=== PATIENT | male | born 1990 | race Caucasian/White ===

== ENCOUNTER 2017-05-25 16:57 | Emergency (ER) | payer OTHER ==
[~2017-05-25] VITALS: Ht 190.5 cm; Wt 120.0 kg
[2017-05-25 17:02] VITALS: Ht 190.5 cm; Wt 120.0 kg
[2017-05-25] MEDS ORDERED: AMOX500C2 PO (18:52)
[2017-05-25] MEDS ORDERED: IBUP-1542 PO (18:52)
[2017-05-25] MEDS ORDERED: PSEU120T11 PO (18:52)
[2017-05-25] MEDS ORDERED: LORA10CA PO (18:52)
--- NOTE | 2017-05-25 18:57 | ERD ---
ER Documentation Chief Complaint Date/Time DATE: 05/25/17 TIME: 18:55 Chief Complaint pt bib self with c/o ringing in the ear with some pain HPI 26 year old male comes in with bilateral inner ear pain with ringing in the ears for 2-3 days. Pain is worse in the left side, achy, nonradiating. No fever , nausea, vomiting. No cough, URI symptoms. Denies headache. ROS All systems reviewed and are negative except as per history of present illness. Medications Home Meds Active Scripts Ibuprofen* (Motrin*) 600 Mg Tab, 600 MG PO Q6, #30 TAB Prov:MARY BURRIS PA-C 05/25/17 Loratadine* (Claritin*) 10 Mg Capsule, 10 MG PO DAILY, #20 CAP Prov:MARY BURRIS PA-C 05/25/17 Pseudoephedrine Hcl (Sudafe 12-Hour) 120 Mg Tablet.er, 120 MG PO BID Y for CONGESTION, #6 TAB.SA Prov:MARY BURRIS PA-C 05/25/17 Amoxicillin* (Amoxicillin*) 500 Mg Cap, 500 MG PO TID for 10 Days, CAP Prov:MARY BURRIS PA-C 05/25/17 Allergies Allergies: Coded Allergies: No Known Allergy (Unverified , 05/25/17) PMhx/Soc Medical and Surgical Hx: pt denies Medical Hx History of Surgery: Yes (hand sx right ) Anesthesia Reaction: No Hx Neurological Disorder: No Hx Respiratory Disorders: No Hx Cardiac Disorders: No Hx Psychiatric Problems: No Hx Miscellaneous Medical Probl: No Hx Alcohol Use: No Hx Substance Use: No Hx Tobacco Use: No Smoking Status: Never smoker Physical Exam Vitals Vital Signs Date Time Temp Pulse Resp B/P Pulse Ox O2 Delivery O2 Flow Rate FiO2 05/25/17 17:02 98.7 83 18 141/87 98 Physical Exam General: Well-developed, well-nourished. The patient appears in no acute distress. HEENT: Head is normocephalic, atraumatic. No scleral icterus. Bilateral TMs are bulging, only left ear has erythema, no perforation, otorrhea or discharge, mastoids are nontender. Oropharynx is clear. Neck: Supple. Nontender. Lungs: Clear to auscultation. Normal air movement. Heart: Regular rate and rhythm. S1 and S2 are normal. No murmurs, gallops, or rubs. Abdomen: Nondistended. Extremities: No clubbing or cyanosis. Moving extremities x 4. No weakness. Neurologic: Alert and oriented 3. No focal deficits. Normal speech and gait. Skin: Normal turgor. No rash or lesions. Procedures/MDM 26-year-old male comes emergency department with left-sided otitis media, likely early right-sided otitis media. There are no signs of deep space infection, mastoiditis, tympanic membrane perforation, foreign body. Departure Diagnosis: Primary Impression: Left otitis media Condition: Good Patient Instructions: Otitis Media, Abx Tx (Adult) Additional Instructions: Call your primary care doctor TOMORROW for an appointment during the next 1-2 days.See the doctor sooner or return here if your condition worsens before your appointment time. MARY BURRIS PA-C May 25, 2017 18:57
== END 2017-05-25 19:04 | disposition home or self-care (01) ==
LOC: FTE 16:57
DX: H66.92 Otitis media, unspecified, left ear (principal)
CPT/HCPCS: 99283

== ENCOUNTER 2017-06-04 08:04 | Emergency (ER) | payer OTHER ==
[~2017-06-04] VITALS: Ht 190.5 cm; Wt 125.0 kg
[~2017-06-04 08:04] MED LIST: AMOX500C2 PO; IBUP-1542 PO; LORA10CA PO; PSEU120T11 PO
[2017-06-04 08:08] VITALS: Ht 190.5 cm; Wt 125.0 kg
--- NOTE | 2017-06-04 08:26 | ERD ---
ER Documentation Chief Complaint Date/Time DATE: 06/04/17 TIME: 08:23 Chief Complaint bilat ear pain HPI 26-year-old male who presents emergency department for bilateral ear pain for more than a week. Stated that he was here previously and was treated with amoxicillin and was told to come back if his symptoms persist. Denies headache, dizziness, blurred vision, neck pain, neck stiffness, shoulder pain, chest pain, back pain, abdominal pain, nausea, vomiting, and constipation , diarrhea, urinary symptoms, recent travel, fever, chills. No known drug allergies. No past medical history. Surgical history John left shoulder surgery, right finger injury. 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 Denies use of alcoholic beverages, use of illegal drugs. ROS All systems reviewed and are negative except as per history of present illness. Medications Home Meds Active Scripts Acetaminophen* (Tylophen*) 500 Mg Capsule, 1 CAP PO Q6H Y for PAIN AND OR ELEVATED TEMP, #20 CAP Prov:JAMESANKITINGRID F 06/04/17 Ibuprofen* (Motrin*) 800 Mg Tab, 800 MG PO Q8 Y for PAIN AND OR ELEVATED TEMP, # 30 TAB Prov:ANKIT RAMIREZAR F 06/04/17 Ciprofloxacin Hcl/Dexameth (Ciprodex Otic Suspension) 7.5 Ml Drops.susp, 4 DROP BOTH EARS BID for 7 Days, EA Prov:SHARMAINE RAMIREZ F 06/04/17 Amoxicillin/Potassium Clav (Amox-Clav 875-125 mg Tablet) 875-125 mg Tab, 1 TAB PO BID for 7 Days, #14 TAB Prov:JAMESANKITINGRID F 06/04/17 Ibuprofen* (Motrin*) 600 Mg Tab, 600 MG PO Q6, #30 TAB Prov:MARY BURRIS PA-C 05/25/17 Loratadine* (Claritin*) 10 Mg Capsule, 10 MG PO DAILY, #20 CAP Prov:MARY BURRIS PA-C 05/25/17 Pseudoephedrine Hcl (Sudafe 12-Hour) 120 Mg Tablet.er, 120 MG PO BID Y for CONGESTION, #6 TAB.SA Prov:MARY BURRIS PA-C 05/25/17 Amoxicillin* (Amoxicillin*) 500 Mg Cap, 500 MG PO TID for 10 Days, CAP Prov:MARY BURRIS PA-C 05/25/17 Allergies Allergies: Coded Allergies: No Known Allergy (Unverified , 06/04/17) PMhx/Soc History of Surgery: Yes (hand sx right ) Anesthesia Reaction: No Hx Neurological Disorder: No Hx Respiratory Disorders: No Hx Cardiac Disorders: No Hx Psychiatric Problems: No Hx Miscellaneous Medical Probl: No Hx Alcohol Use: No Hx Substance Use: No Hx Tobacco Use: No Physical Exam Vitals Vital Signs Date Time Temp Pulse Resp B/P Pulse Ox O2 Delivery O2 Flow Rate FiO2 06/04/17 08:08 98.5 91 18 131/70 98 Physical Exam Const: [] Head: Atraumatic Eyes: Normal Conjunctiva. PERRLA. Her ocular movement of his eyes is within normal limits. No pain in eye movement. ENT: Normal nose and Mouth. Bilateral TM is erythematous. External ear canal is erythematous bilaterally. No discharge. No bleeding. No signs of tympanic membrane rupture. No signs of effusion. No hearing loss. Neck: Full range of motion..~ No meningismus. Neck stiffness. No signs of meningeal irritation. Negative and Kernig sign. Negative on Brudzinski sign. Resp: Clear to auscultation bilaterally Cardio: Regular rate and rhythm, no murmurs Abd: Soft, non tender, non distended. Normal bowel sounds Skin: No petechiae or rashes Back: No midline or flank tenderness Ext: No cyanosis, or edema Neur: Awake and alert Psych: Normal Mood and Affect Procedures/MDM 26-year-old male who presents emergency department for bilateral ear pain for more than a week. Stated that he was here previously and was treated with amoxicillin and was told to come back if his symptoms persist. Denies headache, dizziness, blurred vision, neck pain, neck stiffness, shoulder pain, chest pain, back pain, abdominal pain, nausea, vomiting, and constipation , diarrhea, urinary symptoms, recent travel, fever, chills. No known drug allergies. No past medical history. Surgical history John left shoulder surgery, right finger injury. 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 Denies use of alcoholic beverages, use of illegal drugs. Physical exam: Bilateral TM is erythematous. External ear canal is erythematous bilaterally. No discharge. No bleeding. No signs of tympanic membrane rupture. No signs of effusion. No hearing loss. Neck stiffness. No signs of meningeal irritation. Disease process was explained to the patient. Patient verbalized understanding and agreed with the treatment, plan of care. Prescription: Augmentin. Ciprodex otic drops. Tylenol. Motrin. Follow-up with primary care physician the next 24-48 hours. PCP to refer patient to ENT if symptoms persist. Come back in the emergency department for any symptoms or any worsening of symptoms. All questions and concerns are answered. Patient verbalized understanding and agreed with the plan of care. Hemodynamically stable on discharge. Departure Diagnosis: Primary Impression: Otitis media Additional Impression: Otitis externa Condition: Stable Additional Instructions: Follow-up with primary care physician the next 24-48 hours. PCP to refer patient to ENT if symptoms persist. Come back in the emergency department for any symptoms or any worsening of symptoms. All questions and concerns are answered. Patient verbalized understanding and agreed with the plan of care. SHARMAINE RAMIREZ Jun 04, 2017 08:26
[2017-06-04] MEDS ORDERED: AMOX1TAB10 PO (08:28)
[2017-06-04] MEDS ORDERED: IBUP800T25 PO (08:29)
[2017-06-04] MEDS ORDERED: CIPR7.5D4 BOTH EARS (08:29)
[2017-06-04] MEDS ORDERED: ACET500C5 PO (08:30)
== END 2017-06-04 08:46 | disposition home or self-care (01) ==
LOC: FTE 08:04
DX: H66.93 Otitis media, unspecified, bilateral (principal); H60.93 Unspecified otitis externa, bilateral
CPT/HCPCS: 99283

== ENCOUNTER 2017-08-08 13:59 | Emergency (ER) | payer OTHER ==
[~2017-08-08] VITALS: Ht 190.5 cm; Wt 125.0 kg
[~2017-08-08 13:59] MED LIST changes: +ACET500C5 PO; +AMOX1TAB10 PO; +CIPR7.5D4 BOTH EARS; +IBUP800T25 PO
[2017-08-08 14:00] VITALS: Ht 190.5 cm; Wt 125.0 kg
[2017-08-08] MEDS ORDERED: PSEU120T51 PO (14:37)
[2017-08-08] MEDS ORDERED: AZIT250T94 PO (14:37)
--- NOTE | 2017-08-08 14:39 | ERD ---
ER Documentation Chief Complaint Chief Complaint rt ear pain HPI 27-year-old male complains of right ear pain for last day. He had sharp pain while coughing. 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 He denies any significant nasal congestion, fevers, bleeding or discharge. ROS All systems reviewed and are negative except as per history of present illness. Medications Home Meds Active Scripts Pseudoephedrine Hcl (Sudafed 12 Hour) 120 Mg Tablet.sa, 120 MG PO BID for 7 Days , #15 Prov:TONIO URIBE MD 08/08/17 Azithromycin* (Zithromax*) 250 Mg Tablet, 250 MG PO .ZPACK DIRECTED, #6 TAB TAKE 500 MG (2 TABS) THE FIRST DAY THEN 250 MG (1 TAB) DAYS 2-5 Prov:TONIO URIBE MD 08/08/17 Acetaminophen* (Tylophen*) 500 Mg Capsule, 1 CAP PO Q6H Y for PAIN AND OR ELEVATED TEMP, #20 CAP Prov:SHARMAINE RAMIREZ 06/04/17 Ibuprofen* (Motrin*) 800 Mg Tab, 800 MG PO Q8 Y for PAIN AND OR ELEVATED TEMP, # 30 TAB Prov:SHARMAINE RAMIREZ 06/04/17 Ciprofloxacin Hcl/Dexameth (Ciprodex Otic Suspension) 7.5 Ml Drops.susp, 4 DROP BOTH EARS BID for 7 Days, EA Prov:SHARMAINE RAMIREZ F 06/04/17 Amoxicillin/Potassium Clav (Amox-Clav 875-125 mg Tablet) 875-125 mg Tab, 1 TAB PO BID for 7 Days, #14 TAB Prov:SHARMAINE RAMIREZ F 06/04/17 Ibuprofen* (Motrin*) 600 Mg Tab, 600 MG PO Q6, #30 TAB Prov:MARY BURRIS PA-C 05/25/17 Loratadine* (Claritin*) 10 Mg Capsule, 10 MG PO DAILY, #20 CAP Prov:MARY BURRIS PA-C 05/25/17 Pseudoephedrine Hcl (Sudafe 12-Hour) 120 Mg Tablet.er, 120 MG PO BID Y for CONGESTION, #6 TAB.SA Prov:MARY BURRIS PA-C 05/25/17 Amoxicillin* (Amoxicillin*) 500 Mg Cap, 500 MG PO TID for 10 Days, CAP Prov:MARY BURRIS PA-C 05/25/17 Allergies Allergies: Coded Allergies: No Known Allergy (Unverified , 06/04/17) PMhx/Soc History of Surgery: Yes (hand sx right ) Anesthesia Reaction: No Hx Neurological Disorder: No Hx Respiratory Disorders: No Hx Cardiac Disorders: No Hx Psychiatric Problems: No Hx Miscellaneous Medical Probl: No Hx Alcohol Use: No Hx Substance Use: No Hx Tobacco Use: No Physical Exam Vitals Vital Signs Date Time Temp Pulse Resp B/P Pulse Ox O2 Delivery O2 Flow Rate FiO2 08/08/17 14:00 99.3 86 16 136/77 98 Physical Exam Const: [] Alert, [id number] per Head: Atraumatic Eyes: Normal Conjunctiva ENT: Normal External Ears, Nose and Mouth. Slight decreased light reflex and clear fluid bilaterally. No bleeding or discharge or perforation appreciated. No mastoid tenderness. Neck: Full range of motion..~ No meningismus. Resp: Clear to auscultation bilaterally Cardio: Regular rate and rhythm, no murmurs Abd: Soft, non tender, non distended. Normal bowel sounds Skin: No petechiae or rashes Back: No midline or flank tenderness Ext: No cyanosis, or edema Neur: Awake and alert Psych: Normal Mood and Affect Procedures/MDM Patient presents with bilateral ear pain while coughing in the last day. He may have eustachian tube dysfunction. There is no evidence of mastoiditis, perforation or additional ear emergencies. We will treat with Sudafed, further observation at home. He will given a prescription of Zithromax to hold for 3-4 days and taking for worsening pain, purulent discharge, new worsening symptoms or primary care doctor and further evaluation is necessary. The patient was stable with no new complaints during the ER course. Clinically, there is no current evidence to suggest meningitis, sepsis, acute abdomen, pneumonia, acute coronary syndrome, pulmonary embolism, or any other emergent condition appearing to require further evaluation or hospitalization. The patient should certainly return for any new or worsening symptoms per the aftercare instructions. They should otherwise follow-up with her primary care doctor for reevaluation this week. Departure Diagnosis: Primary Impression: Ear problem Laterality: bilateral Qualified Code: H93.93 - Problem of both ears Condition: Stable Patient Instructions: Eustachian Tube Obstruction (Child) Additional Instructions: Likely eustachian tube dysfunction. Recheck for bleeding, discharge, fevers, new or worsening symptoms or primary care doctor. Okay to hold antibiotics 3-4 days take for worsening symptoms, purulent discharge. TONIO URIBE MD Aug 08, 2017 14:39
== END 2017-08-08 14:57 | disposition home or self-care (01) ==
LOC: FTE 13:59
DX: H92.01 Otalgia, right ear (principal)
CPT/HCPCS: 99283

== ENCOUNTER 2017-08-22 16:04 | Emergency (ER) | payer OTHER ==
[~2017-08-22] VITALS: Ht 190.5 cm; Wt 122.6 kg
[~2017-08-22 16:04] MED LIST changes: +AZIT250T94 PO; +PSEU120T51 PO
[2017-08-22 16:43] VITALS: Ht 190.5 cm; Wt 122.6 kg
--- NOTE | 2017-08-22 18:48 | ERD ---
ER Documentation Chief Complaint Chief Complaint Ear ache x 2 weeks HPI This is a very pleasant 27-year-old male with no past medical history that presents to the emergency department requesting a medication refill as he accidentally dropped his antibiotics into paint thinner at work. The patient had been placed on azithromycin for a bilateral otitis media. He had taken the first dose. Indicates that 2 weeks ago he been diagnosed with otitis media but had not started antibiotics until yesterday. He still has persistent bilateral ear pain with no fevers or shaking or chills. 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 He denies a headache. He has no changes in vision. He has no history of hypertension and no family history of high blood pressure. ROS All systems reviewed and are negative except as per history of present illness. Medications Home Meds Active Scripts Pseudoephedrine Hcl (Sudafed 12 Hour) 120 Mg Tablet.sa, 120 MG PO BID for 7 Days , #15 Prov:TONIO URIBE MD 08/08/17 Azithromycin* (Zithromax*) 250 Mg Tablet, 250 MG PO .ZPACK DIRECTED, #6 TAB TAKE 500 MG (2 TABS) THE FIRST DAY THEN 250 MG (1 TAB) DAYS 2-5 Prov:TONIO URIBE MD 08/08/17 Acetaminophen* (Tylophen*) 500 Mg Capsule, 1 CAP PO Q6H Y for PAIN AND OR ELEVATED TEMP, #20 CAP Prov:SHARMAINE RAMIREZ 06/04/17 Ibuprofen* (Motrin*) 800 Mg Tab, 800 MG PO Q8 Y for PAIN AND OR ELEVATED TEMP, # 30 TAB Prov:SHARMAINE RAMIREZ 06/04/17 Ciprofloxacin Hcl/Dexameth (Ciprodex Otic Suspension) 7.5 Ml Drops.susp, 4 DROP BOTH EARS BID for 7 Days, EA Prov:SHARMAINE RAMIREZ 06/04/17 Amoxicillin/Potassium Clav (Amox-Clav 875-125 mg Tablet) 875-125 mg Tab, 1 TAB PO BID for 7 Days, #14 TAB Prov:SHARMAINE RAMIREZ 06/04/17 Ibuprofen* (Motrin*) 600 Mg Tab, 600 MG PO Q6, #30 TAB Prov:MARY BURRIS PA-C 05/25/17 Loratadine* (Claritin*) 10 Mg Capsule, 10 MG PO DAILY, #20 CAP Prov:MARY BURRIS PA-C 05/25/17 Pseudoephedrine Hcl (Sudafe 12-Hour) 120 Mg Tablet.er, 120 MG PO BID Y for CONGESTION, #6 TAB.SA Prov:MARY BURRIS PA-C 05/25/17 Amoxicillin* (Amoxicillin*) 500 Mg Cap, 500 MG PO TID for 10 Days, CAP Prov:MARY BURRIS PA-C 05/25/17 Allergies Allergies: Coded Allergies: No Known Allergy (Unverified , 06/04/17) PMhx/Soc History of Surgery: Yes (hand sx right ) Anesthesia Reaction: No Hx Neurological Disorder: No Hx Respiratory Disorders: No Hx Cardiac Disorders: No Hx Psychiatric Problems: No Hx Miscellaneous Medical Probl: No Hx Alcohol Use: No Hx Substance Use: No Hx Tobacco Use: No Physical Exam Vitals Vital Signs Date Time Temp Pulse Resp B/P Pulse Ox O2 Delivery O2 Flow Rate FiO2 08/22/17 16:43 98.1 94 20 173/103 99 Physical Exam Constitutional:Well-developed. Well-nourished. HEENT:Normocephalic. Atraumatic.Pupils were equal round reactive to light. Moist mucous membranes.No tonsillar exudates. Bulging and erythremia of the left and the right tympanic membrane with no edema of the external auditory ear canal. No tenderness with manipulation of the bilateral auricles. No tenderness over the mastoids bilaterally. Fundoscopy exam shows sharp optic disks Respiratory: Not using accessory muscles of respiration.Lungs were clear to auscultation bilaterally. No rhonchi. No rales. No wheezing. Cardiovascular: Regular rate regular rhythm.No murmurs. No rubs were appreciated.S1, S2 normal. Distal pulses are palpable 2+ bilaterally. Skin: No petechia, no purpura. No lesions on the palms or the soles of the feet. No maculopapular rash. NEURO: Patient was alert, awake, orientated x3.No facial droop. Gait observed and normal with no ataxia.Speech had regular rate and rhythm. No focal neurological deficits. Procedures/MDM This is a 27-year-old male that presented to the emergency department with bilateral otitis media. The patient will be given a prescription of amoxicillin and he did not appear to have any complications from his otitis media. This patient presented to the emergency department with severely elevated blood pressure. My differential diagnosis included but was not limited to conditions that could end-organ damage such as acute coronary syndrome, acute pulmonary edema, aortic dissection, subarachnoid hemorrhage, intracerebral hemorrhage, cerebral infarction, withdrawal syndromes from beta blockers, or states of catecholamine excess such as pheochromocytoma or drug intoxication. Given that the patient had an absence of cerebral, ocular, cardiac or renal damage the hypertensive urgency was treated with oral agents in the emergency room with improvement of the patient's blood pressure. The patient likely appeared to be complaint with primary care physician and will follow up with their PCP in the next 24-48 hours. They were instructed to return to the emergency department at anytime if there is any worsening of their condition such as development of chest pain or a headache. They were instructed to resume previous medication regimen or initiate a suitable medication regimen under care of the PCP to enable proper monitoring for drug reactions. The patient was also informed on the adverse side effects and adverse drug interactions of the medications prescribed to them by myself. The patient gave informed consent to the prescription of the new medication. Departure Diagnosis: Primary Impression: Otitis media Additional Impression: Hypertensive urgency MIKA GARDNER Aug 22, 2017 18:48
[2017-08-22] MEDS ORDERED: AMOX500C2 PO (18:49)
== END 2017-08-22 20:02 | disposition home or self-care (01) ==
LOC: E/R 16:04
DX: H66.91 Otitis media, unspecified, right ear (principal); I16.0 Hypertensive urgency; I10 Essential (primary) hypertension
CPT/HCPCS: 99283

== ENCOUNTER 2017-08-29 10:26 | Emergency (ER) | END 2017-08-29 13:15 | disposition home or self-care (01) ==

== ENCOUNTER 2017-10-05 07:46 | Emergency (ER) | END 2017-10-05 08:32 | disposition home or self-care (01) ==

== ENCOUNTER 2018-01-28 18:50 | Emergency (ER) | END 2018-01-28 19:00 | disposition home or self-care (01) ==

== ENCOUNTER 2018-07-27 19:37 | Emergency (ER) | END 2018-07-27 21:10 | disposition home or self-care (01) ==

== ENCOUNTER 2018-08-02 15:13 | Emergency (ER) | END 2018-08-02 18:22 | disposition home or self-care (01) ==

== ENCOUNTER 2018-08-09 18:51 | Emergency (ER) | END 2018-08-09 21:20 | disposition home or self-care (01) ==

== ENCOUNTER 2018-10-26 16:13 | Emergency (ER) | payer OTHER ==
[~2018-10-26] VITALS: Ht 185.4 cm; Wt 151.9 kg
[~2018-10-26 16:13] MED LIST changes: +AZIT250T PO; -AZIT250T94 PO; +CETI10CA PO; +CIPR7.5D BOTH EARS; -CIPR7.5D4 BOTH EARS; -IBUP800T25 PO; +IBUP800T48 PO; +NPH10OT BOTH EARS; +NPH10OT RIGHT EAR; +OFLO5DRO7 RIGHT EAR; +PRED20TA PO; +PSEU120T12 PO; -PSEU120T51 PO
[2018-10-26 16:40] VITALS: BP 142/82; PULSE 84; RESP 18; Ht 185.4 cm; Wt 151.9 kg
[2018-10-26] MEDS ORDERED: CIPR7.5D BOTH EARS (18:43)
--- NOTE | 2018-10-26 18:43 | ERD ---
ER Documentation Chief Complaint Chief Complaint bilat ear pain. no ear discharge. has tubes in ears ROS All systems reviewed and are negative except as per history of present illness. Medications Home Meds Active Scripts Ciprofloxacin Hcl/Dexameth (Ciprodex Otic Suspension) 7.5 Ml Drops.susp, 4 DROP BOTH EARS BID for otitis externa for 7 Days, #1 BOTTLE Prov:ELIAS DE OLIVEIRA DO 10/26/18 Cetirizine Hcl* (Zyrtec*) 10 Mg Capsule, 10 MG PO DAILY, #30 TAB.CHEW Prov:MARLEY CARVALHO INFRASTRUCTURE DIRECTOR 08/09/18 Azithromycin* (Zithromax*) 250 Mg Tablet, 250 MG PO .ZPACK DIRECTED, #6 TAB TAKE 500 MG (2 TABS) THE FIRST DAY THEN 250 MG (1 TAB) DAYS 2-5 Prov:MARLEY CARVALHO INFRASTRUCTURE DIRECTOR 08/09/18 Ibuprofen* (Motrin*) 600 Mg Tab, 600 MG PO Q6H PRN for PAIN AND OR ELEVATED TEMP, #30 TAB Prov:MARLEY CARVALHO NP 08/09/18 Ibuprofen* (Motrin*) 800 Mg Tab, 800 MG PO Q6, #30 TAB Prov:MARIANO COLÓN PA-C 08/02/18 Neomycin/Polymyxin/Hydrocort* (Cortisporin* Otic) 10 Ml Susp, 4 DROP RIGHT EAR QID for 7 Days, EA Prov:LIEN CORONADO PA-C 07/27/18 Azithromycin* (Zithromax*) 250 Mg Tablet, 250 MG PO .ZPACK DIRECTED, #6 TAB TAKE 500 MG (2 TABS) THE FIRST DAY THEN 250 MG (1 TAB) DAYS 2-5 Prov:LIEN CORONADO PA-C 07/27/18 Neomycin/Polymyxin/Hydrocort* (Cortisporin* Otic) 10 Ml Susp, 4 DROP BOTH EARS QID for 7 Days, EA Prov:ESTELA ROBERTO PA-C 01/28/18 Azithromycin* (Zithromax*) 250 Mg Tablet, 250 MG PO .ZPACK DIRECTED, #6 TAB TAKE 500 MG (2 TABS) THE FIRST DAY THEN 250 MG (1 TAB) DAYS 2-5 Prov:ESTELA ROBERTO PA-C 01/28/18 Prednisone* (Prednisone*) 20 Mg Tab, 40 MG PO DAILY for 4 Days, TAB Prov:TONIO URIBE MD 10/05/17 Azithromycin* (Zithromax*) 250 Mg Tablet, 250 MG PO .ZPADONNIE DIRECTED, #6 TAB TAKE 500 MG (2 TABS) THE FIRST DAY THEN 250 MG (1 TAB) DAYS 2-5 Prov:TONIO URIBE MD 10/05/17 Ofloxacin Otic (Ofloxacin Otic) 5 Ml Drops, 5 DROP RIGHT EAR BID for 10 Days, #1 BOTTLE Prov:MARY BURRIS PA-C 08/29/17 Azithromycin* (Zithromax*) 250 Mg Tablet, 250 MG PO .MarshallPADONNIE DIRECTED, #6 TAB TAKE 500 MG (2 TABS) THE FIRST DAY THEN 250 MG (1 TAB) DAYS 2-5 Prov:MARY BURRIS PA-C 08/29/17 Amoxicillin* (Amoxicillin*) 500 Mg Cap, 500 MG PO BID for 10 Days, CAP Prov:MIKA GARDNER MD 08/22/17 Pseudoephedrine Hcl (Sudafed 12 Hour) 120 Mg Tablet.sa, 120 MG PO BID for 7 Days, #15 Prov:TONIO URIBE MD 08/08/17 Azithromycin* (Zithromax*) 250 Mg Tablet, 250 MG PO .MarshallPADONNIE DIRECTED, #6 TAB TAKE 500 MG (2 TABS) THE FIRST DAY THEN 250 MG (1 TAB) DAYS 2-5 Prov:TONIO URIBE MD 08/08/17 Acetaminophen* (Tylophen*) 500 Mg Capsule, 1 CAP PO Q6H PRN for PAIN AND OR ELEVATED TEMP, #20 CAP Prov:SHARMAINE RAMIREZ 06/04/17 Ibuprofen* (Motrin*) 800 Mg Tab, 800 MG PO Q8 PRN for PAIN AND OR ELEVATED TEMP, #30 TAB Prov:SHARMAINE RAMIREZ 06/04/17 Ciprofloxacin Hcl/Dexameth (Ciprodex Otic Suspension) 7.5 Ml Drops.susp, 4 DROP BOTH EARS BID for 7 Days, EA Prov:SHARMAINE RAMIREZ 06/04/17 Amoxicillin/Potassium Clav (Amox-Clav 875-125 mg Tablet) 875-125 mg Tab, 1 TAB PO BID for 7 Days, #14 TAB Prov:SHARMAINE RAMIREZ 06/04/17 Ibuprofen* (Motrin*) 600 Mg Tab, 600 MG PO Q6, #30 TAB Prov:MARY BURRIS PA-C 05/25/17 Loratadine* (Claritin*) 10 Mg Capsule, 10 MG PO DAILY, #20 CAP Prov:MARY BURRIS PA-C 05/25/17 Pseudoephedrine Hcl (Sudafe 12-Hour) 120 Mg Tablet.er, 120 MG PO BID PRN for CONGESTION, #6 TAB.SA Prov:AMRY BURRIS PA-C 05/25/17 Amoxicillin* (Amoxicillin*) 500 Mg Cap, 500 MG PO TID for 10 Days, CAP Prov:MARY BURRIS PA-C 05/25/17 Allergies Allergies: Coded Allergies: No Known Allergy (Unverified , 01/28/18) PMhx/Soc History of Surgery: Yes ( right hand surgery) Anesthesia Reaction: No Hx Neurological Disorder: No Hx Respiratory Disorders: Yes (ASTHMA) Hx Cardiac Disorders: No Hx Psychiatric Problems: No Hx Miscellaneous Medical Probl: No (ear infections, EUSTACIAN TUBES) Hx Alcohol Use: No Hx Substance Use: Yes (MARIJUANA DAILY) Hx Tobacco Use: No Smoking Status: Never smoker Physical Exam Vitals Vital Signs Date Temp Pulse Resp B/P (MAP) Pulse Ox O2 O2 Flow FiO2 Time Delivery Rate 10/26/18 98.7 84 18 142/82 98 16:40 (102) Physical Exam Const: No acute distress Head: Atraumatic Eyes: Normal Conjunctiva ENT: Normal External Ears, Nose and Mouth. Neck: Full range of motion. No meningismus. Resp: Clear to auscultation bilaterally Cardio: Regular rate and rhythm, no murmurs Abd: Soft, non tender, non distended. Normal bowel sounds Skin: No petechiae or rashes Back: No midline or flank tenderness Ext: No cyanosis, or edema Neur: Awake and alert Psych: Normal Mood and Affect Departure Diagnosis: Primary Impression: Ear pain Laterality: bilateral Qualified Codes: H92.03 - Otalgia, bilateral Condition: Fair Patient Instructions: External Ear Infection (Adult) Additional Instructions: Call your primary care doctor TOMORROW for an appointment during the next 1-2 days.See the doctor sooner or return here if your condition worsens before your appointment time. Follow up with ENT ELIAS DE OLIVEIRA DO Oct 26, 2018 18:43
== END 2018-10-26 19:07 | disposition home or self-care (01) ==
LOC: FTE 16:13
DX: H92.03 Otalgia, bilateral (principal); J45.909 Unspecified asthma, uncomplicated
CPT/HCPCS: 99283

== ENCOUNTER 2019-02-12 23:54 | Emergency (ER) | payer SELFPAY ==
[~2019-02-12] VITALS: Ht 190.5 cm; Wt 154.8 kg
[2019-02-12 23:57] VITALS: BP 131/85; PULSE 111; RESP 22; Ht 190.5 cm; Wt 154.8 kg
--- NOTE | 2019-02-13 02:25 | ERD ---
ER Documentation Chief Complaint Chief Complaint C/O SALAS EAR ACHE X1 WEEK HPI This is a 28-year-old male presents emergency department complaints of bilateral ear pain for about a week. Stated that he has history of ear tube placement when he was a kid. Stated that he believes he has an ear infection. Stated that the only medication that helps his ear infection is Azithromycin. Denies headache, head injury, loss of consciousness, dizziness, neck pain, neck stiffness, throat pain, difficulty swallowing, difficulty breathing lying flat, shoulder pain, chest pain, back pain, abdominal pain, nausea, vomiting, constipation, diarrhea, urinary symptoms, loss of bowel and bladder control, trauma, injury, falls, difficulty walking due to pain, numbness or tingling sensation, calf pain, recent travel, recent major surgery in the last 3 weeks, calf pain, recent long travel, recent exposure to any illness, recent antibiotic use in the last 3 months, fever, chills, seizures. Past medical history: Surgical history: Social: Denies smoking, use of alcoholic beverages, use of illegal drugs. ROS All systems reviewed and are negative except as per history of present illness. Medications Home Meds Active Scripts Ibuprofen* (Motrin*) 800 Mg Tab, 800 MG PO Q6H PRN for PAIN AND OR ELEVATED TEMP, #30 TAB Prov:SHARMAINE RAMIREZ 02/13/19 Azithromycin* (Zithromax*) 250 Mg Tablet, 250 MG PO .ZPACK DIRECTED, #6 TAB TAKE 500 MG (2 TABS) THE FIRST DAY THEN 250 MG (1 TAB) DAYS 2-5 Prov:SHARMAINE RAMIREZ 02/13/19 Ciprofloxacin Hcl/Dexameth (Ciprodex Otic Suspension) 7.5 Ml Drops.susp, 4 DROP BOTH EARS BID for otitis externa for 7 Days, #1 BOTTLE Prov:ALVINOELIAS 10/26/18 Cetirizine Hcl* (Zyrtec*) 10 Mg Capsule, 10 MG PO DAILY, #30 TAB.CHEW Prov:MARLEY CARVALHO NP 08/09/18 Azithromycin* (Zithromax*) 250 Mg Tablet, 250 MG PO .ZPACK DIRECTED, #6 TAB TAKE 500 MG (2 TABS) THE FIRST DAY THEN 250 MG (1 TAB) DAYS 2-5 Prov:MARLEY CARVALHO NP 08/09/18 Ibuprofen* (Motrin*) 600 Mg Tab, 600 MG PO Q6H PRN for PAIN AND OR ELEVATED TEMP, #30 TAB Prov:MARLEY CARVALHO FRANCK [place] NP 08/09/18 Ibuprofen* (Motrin*) 800 Mg Tab, 800 MG PO Q6, #30 TAB Prov:[facility] 08/02/18 Neomycin/Polymyxin/Hydrocort* (Cortisporin* Otic) 10 Ml Susp, 4 DROP RIGHT EAR QID for 7 Days, EA Prov:LIEN CORONADO [facility] 07/27/18 Azithromycin* (Zithromax*) 250 Mg Tablet, 250 MG PO .ZPACK DIRECTED, #6 TAB TAKE 500 MG (2 TABS) THE FIRST DAY THEN 250 MG (1 TAB) DAYS 2-5 Prov:LIEN CORONADO 07/27/18 Neomycin/Polymyxin/Hydrocort* (Cortisporin* Otic) 10 Ml Susp, 4 DROP BOTH EARS QID for 7 Days, EA Prov:ESTELA ROBERTO [facility] 01/28/18 Azithromycin* (Zithromax*) 250 Mg Tablet, 250 MG PO .ZPACK DIRECTED, #6 TAB TAKE 500 MG (2 TABS) THE FIRST DAY THEN 250 MG (1 TAB) DAYS 2-5 Prov:ESTELA ROBERTO [facility] 01/28/18 Prednisone* (Prednisone*) 20 Mg Tab, 40 MG PO DAILY for 4 Days, TAB Prov:TONIO URIBE MD 10/05/17 Azithromycin* (Zithromax*) 250 Mg Tablet, 250 MG PO .ZPACK DIRECTED, #6 TAB TAKE 500 MG (2 TABS) THE FIRST DAY THEN 250 MG (1 TAB) DAYS 2-5 Prov:TONIO URIBE MD 10/05/17 Ofloxacin Otic (Ofloxacin Otic) 5 Ml Drops, 5 DROP RIGHT EAR BID for 10 Days, #1 BOTTLE Prov:MARY BURRISC 08/29/17 Azithromycin* (Zithromax*) 250 Mg Tablet, 250 MG PO .ZPACK DIRECTED, #6 TAB TAKE 500 MG (2 TABS) THE FIRST DAY THEN 250 MG (1 TAB) DAYS 2-5 Prov:MARY BURRIS PA-C 08/29/17 Amoxicillin* (Amoxicillin*) 500 Mg Cap, 500 MG PO BID for 10 Days, CAP Prov:MIKA GARDNER MD 08/22/17 Pseudoephedrine Hcl (Sudafed 12 Hour) 120 Mg Tablet.sa, 120 MG PO BID for 7 Days, #15 Prov:TONIO URIBE MD 08/08/17 Azithromycin* (Zithromax*) 250 Mg Tablet, 250 MG PO .ZPACK DIRECTED, #6 TAB TAKE 500 MG (2 TABS) THE FIRST DAY THEN 250 MG (1 TAB) DAYS 2-5 Prov:TONIO URIBE MD 08/08/17 Acetaminophen* (Tylophen*) 500 Mg Capsule, 1 CAP PO Q6H PRN for PAIN AND OR ELEVATED TEMP, #20 CAP Prov:SHARMAINE RAMIREZ 06/04/17 Ibuprofen* (Motrin*) 800 Mg Tab, 800 MG PO Q8 PRN for PAIN AND OR ELEVATED TEMP, #30 TAB Prov:SHARMAINE RAMIREZ 06/04/17 Ciprofloxacin Hcl/Dexameth (Ciprodex Otic Suspension) 7.5 Ml Drops.susp, 4 DROP BOTH EARS BID for 7 Days, EA Prov:SHARMAINE RAMIREZ 06/04/17 Amoxicillin/Potassium Clav (Amox-Clav 875-125 mg Tablet) 875-125 mg Tab, 1 TAB PO BID for 7 Days, #14 TAB Prov:SHARMAINE RAMIREZ F 06/04/17 Ibuprofen* (Motrin*) 600 Mg Tab, 600 MG PO Q6, #30 TAB Prov:MARY BURRIS PA-C 05/25/17 Loratadine* (Claritin*) 10 Mg Capsule, 10 MG PO DAILY, #20 CAP Prov:MARY BURRIS PA-C 05/25/17 Pseudoephedrine Hcl (Sudafe 12-Hour) 120 Mg Tablet.er, 120 MG PO BID PRN for CONGESTION, #6 TAB.SA Prov:MARY BURRIS PA-C 05/25/17 Amoxicillin* (Amoxicillin*) 500 Mg Cap, 500 MG PO TID for 10 Days, CAP Prov:MARY BURRIS PA-C 05/25/17 Allergies Allergies: Coded Allergies: No Known Allergy (Unverified , 01/28/18) PMhx/Soc History of Surgery: Yes ( right hand surgery) Anesthesia Reaction: No Hx Neurological Disorder: No Hx Respiratory Disorders: Yes (ASTHMA) Hx Cardiac Disorders: No Hx Psychiatric Problems: No Hx Miscellaneous Medical Probl: No (ear infections, EUSTACIAN TUBES) Hx Alcohol Use: No Hx Substance Use: Yes (MARIJUANA DAILY) Hx Tobacco Use: No Smoking Status: Never smoker Physical Exam Vitals Vital Signs Date Temp Pulse Resp B/P (MAP) Pulse Ox O2 O2 Flow FiO2 Time Delivery Rate 02/12/19 97.1 111 22 131/85 96 23:57 (100) Physical Exam Const: No acute distress Head: Atraumatic Eyes: Normal Conjunctiva ENT: Normal External Ears, Nose and Mouth. Bilateral ears: There is no hearing loss. TMs are erythematous. No bleeding. No discharge. No mastoid tenderness. Nose: Midline without deviation. No septal hematoma. Throat: Uvula is in midline and nondisplaced. Tonsils are +1 bilaterally without redness and without exudates. Tolerating secretions. Patent airway. Speaks full and clear sentences. No tripoding. Neck: Full range of motion. No meningismus. No nuchal rigidity. No signs of meningeal irritation. Resp: Clear to auscultation bilaterally Cardio: Regular rate and rhythm, no murmurs Abd: Soft, non tender, non distended. Normal bowel sounds Skin: No petechiae or rashes Back: No midline or flank tenderness Ext: No cyanosis, or edema Neur: Awake and alert. No neurological deficits. Psych: Normal Mood and Affect Procedures/MDM Diagnostic tests: Clinical exam. Treatment: Not applicable. Re-evaluation: Not applicable. Differential diagnosis I have low suspicion for sepsis, deep space infection, severe serious bacterial infection, malignant otitis externa, meningitis, peritonsillar abscess, mastoiditis. Final diagnosis: Otitis media. Prescription: Azithromycin. Motrin. Follow-up with PCP in the next 24-48 hours. Follow-up with ENT in the next 24 to 48 hours. Come back here in the emergency department for any new symptoms or any worsening symptoms. All questions and concerns were answered. Patient and family members verbalized understanding and agreed with plan of care. Hemodynamically stable on discharge. Departure Diagnosis: Primary Impression: Otitis media Condition: Stable Additional Instructions: Follow-up with PCP in the next 24-48 hours. Follow-up with ENT in the next 24 to 48 hours. Come back here in the emergency department for any new symptoms or any worsening symptoms. SHARMAINE RAMIREZ Feb 13, 2019 02:25
[2019-02-13] MEDS ORDERED: AZIT250T PO (02:40)
[2019-02-13] MEDS ORDERED: IBUP800T48 PO (02:40)
== END 2019-02-13 02:57 | disposition home or self-care (01) ==
LOC: FTE 23:54
DX: H66.93 Otitis media, unspecified, bilateral (principal); J45.909 Unspecified asthma, uncomplicated
CPT/HCPCS: 99283